=== PATIENT | male | born 1955 | race Caucasian/White ===

== ENCOUNTER 2018-06-28 06:54 | Day surgery (SDC) | payer OTHER ==
[2018-06-28 07:13] VITALS: BMI 30.2
[2018-06-28] MEDS ORDERED: Lactated Ringer's 500 ML IV ONE (09:25)
[2018-06-28] MEDS ORDERED: Lidocaine Hydrochloride 5 ML INJ ONE (09:27)
[2018-06-28] MEDS ORDERED: Propofol 10 mg/ml Inj (20 ML) ONE ×2 (09:27→09:32)
[2018-06-28 10:59] VITALS: BP 123/73; PULSE 77; RESP 12; TEMP 98; O2SAT 100
== END 2018-06-28 11:48 | disposition home or self-care (01) ==
LOC: C.ENDO 06:54
PROVIDERS: ATTEND Internal Medicine Gastroenterology
DX: D12.2 Benign neoplasm of ascending colon (principal); D12.3 Benign neoplasm of transverse colon; K64.1 Second degree hemorrhoids
CPT/HCPCS: 45380; 82948; 88305; J2704; J7120